=== PATIENT | male | born 1965 | race Caucasian/White ===

== ENCOUNTER 2021-02-19 17:04 | Emergency (ER) | payer MEDICARE, OTHER ==
[2021-02-19 17:19] VITALS: TEMP 98.4
[2021-02-19 18:40] LABS: Basophils # (A) 0.1 k/uL (0-0.2); Basophils % (A) 1 %; Eosinophils # (A) 0.3 k/uL (0-0.7); Eosinophils % (A) 3 %; HCT 44.2 % (39.0-53.0); HGB 14.6 gm/dL (13.0-17.5); Lymphocytes # (A) 0.8 k/uL (1.0-4.8); Lymphocytes % (A) 7 %; MCH 29.9 pg (25.0-35.0); MCHC 33.1 g/dL (31.0-37.0); MCV 90.4 fL (80.0-100.0); Mean Platelet Volume 8.4; Monocytes # (A) 0.8 k/uL (0-1.0); Monocytes % (A) 7 %; Neutrophils # (A) 9.4 k/uL (1.3-7.7); Neutrophils % (A) 81 %; Platelet Count 227 k/uL (150-450); RBC 4.89 m/uL (4.30-5.90); RDW 11.9 % (11.5-15.5); WBC 11.5 k/uL (3.8-10.6)
[2021-02-19 18:49] LABS: ALT 40 U/L (4-49); AST 40 U/L (17-59); African American GFR (CKD) >90 (>60 ml/min/1.73 sqM); Albumin 4.7 g/dL (3.5-5.0); Alkaline Phosphatase 101 U/L (38-126); Anion Gap 11 mmol/L; Blood Urea Nitrogen 13 mg/dL (9-20); Carbon Dioxide 25 mmol/L (22-30); Chloride 101 mmol/L (98-107); Glucose 106 mg/dL (74-99); Non-African American GFR(CKD) >90 (>60 ml/min/1.73 sqM); Potassium 4.4 mmol/L (3.5-5.1); Sodium 137 mmol/L (137-145); Total Bilirubin 0.7 mg/dL (0.2-1.3); Total Protein 7.8 g/dL (6.3-8.2)
[2021-02-19 18:54] LABS: INR 0.9 (<1.2)
[2021-02-19 19:15] VITALS: RESP 20
--- NOTE | 2021-02-19 19:44 | XR ---
EXAMINATION TYPE: XR chest 2V DATE OF EXAM: 02/19/2021 COMPARISON: NONE HISTORY: Chest pain TECHNIQUE: 2 views FINDINGS: Heart and mediastinum are normal. Lungs are clear of infiltrate. There is no heart failure. There are no hilar masses. There are chest leads. Bony thorax is intact. IMPRESSION: No active cardiopulmonary disease. Normal heart.
[2021-02-19] MEDS ORDERED: IPRATROPIUM-ALBUTEROL 3 ML NEB INHALATION STA (19:56)
--- NOTE | 2021-02-19 20:25 | CT ---
EXAMINATION TYPE: CT chest angio for PE DATE OF EXAM: 02/19/2021 COMPARISON: None HISTORY: Cough, congestion, elevated d-dimer. CT DLP: 360 mGycm Automated exposure control for dose reduction was used. CONTRAST: Performed with IV Contrast, patient injected with 100 mL of Isovue 370. There are 3-D post processed images. There is no mediastinal adenopathy. There are no hilar masses. Thoracic aorta is intact. There is no evidence of aneurysm or dissection. The ascending aorta measures 3.9 cm. Heart size is normal. There is no pericardial effusion. There is normal contrast opacification of the pulmonary arteries. There are no filling defects. There is some minor spurring in the thoracic spine. There is no compression fracture. Sternum is inta ct. Upper abdominal soft tissues are intact. The lungs are clear of infiltrate. There is some mild re ticular interstitial density in the upper and lower lung bell. IMPRESSION: No evidence of pulmonary embolism. There is some minimal interstitial pneumonia. Normal heart.
[2021-02-19 20:44] VITALS: PULSE 68
[2021-02-19] MEDS ORDERED: predniSONE 20 MG TAB PO STA (20:45)
[2021-02-19] MEDS ORDERED: DOXYCYCLINE 100 MG CAP PO STA (20:45)
--- NOTE | 2021-02-19 20:52 | ED ---
General Adult HPI - General Chief complaint: Chest Pain Stated complaint: Chest Pain/Cough Time Seen by Provider: 02/19/21 17:48 Source: patient Mode of arrival: ambulatory Limitations: no limitations - History of Present Illness Initial comments: 55-year-old previously healthy male presents to the emergency department chest congestion and cough. States that for the past 3 days he has had a productive cough, shortness of breath and chest pain. States his sputum has been clear. Denies any previous history of pulmonary or cardiac disease. He is a smoker. Denies any sick contacts with similar symptoms. No covid exposure. He went to an urgent care this morning. He completed an EKG and told the hospital. He went to [facility] and was told that it was a 5 hour wait. He left and decided to come here. Denies hemoptysis. Has not been taking any medications at home for symptoms. No other alleviating, precipitating or modifying factors - Related Data Previous Rx's Medication Instructions Recorded Albuterol Inhaler [Ventolin Hfa 2 puff INHALATION RT-QID #8 gm 02/19/21 Inhaler] Doxycycline Monohydrate [Monodox] 100 mg PO Q12HR #20 cap 02/19/21 predniSONE [Deltasone] 20 mg PO BID #10 tab 02/19/21 Allergies Allergy/AdvReac Type Severity Reaction Status Date / Time No Known Allergies Allergy Verified 02/19/21 18:16 Review of Systems ROS Statement: Those systems with pertinent positive or pertinent negative responses have been documented in the HPI. ROS Other: All systems not noted in ROS Statement are negative. Past Medical History Additional Past Medical History / Comment(s): closed head injury. History of Any Multi-Drug Resistant Organisms: None Reported Past Surgical History: Orthopedic Surgery Past Psychological History: No Psychological Hx Reported Smoking Status: Current every day smoker Past Alcohol Use History: None Reported Past Drug Use History: Marijuana General Exam Limitations: no limitations Course Vital Signs 02/19/21 02/19/21 02/19/21 17:14 19:14 20:40 Temperature 98.4 F Pulse Rate 65 65 68 Respiratory 18 20 Rate Blood Pressure 142/71 142/89 O2 Sat by Pulse 97 97 Oximetry 02/19/21 02/19/21 20:49 20:59 Temperature 98.4 F Pulse Rate 68 68 Respiratory 20 Rate Blood Pressure 141/84 O2 Sat by Pulse 96 Oximetry EKG Findings - EKG Comments: EKG Findings:: EKG demonstrates sinus rhythm with a ventricular rate of 71. CT interval 148. QRS 112. QTC of 430. No acute ST segment elevations or depressions Procedures - [place] Protocol (Time Out) Nurse: Jatin Galeano Medical Decision Making - Medical Decision Making Upon arrival the patient was placed into room 14. Thorough history and physical exam is performed. IV is established. Laboratory studies are conducted. D- dimer elevated at 2.78. Troponin negative. BNP 31. Covid negative. Chest x- ray is performed and menstruates no active cardiopulmonary disease. CT demonstrates no evidence of pulmonary ambles and. Minimal interstitial pneumonia. Patient is given a DuoNeb breathing treatment, 100 mg of doxycycline and 60 mg of prednisone. Patient will be discharged home with an albuterol inhaler, doxycycline and prednisone. Instructed to take the medications as directed and follow up with his primary care doctor in 2-4 days. Return to the emergency room for any new or worsening symptoms. Patient was discharged home in stable condition - Lab Data Result diagrams: 02/19/21 18:30 02/19/21 18:30 Lab Results 02/19/21 02/19/21 02/19/21 Range/Units 18:30 18:30 18:30 WBC 11.5 H (3.8-10.6) k/uL RBC 4.89 (4.30-5.90) m/uL Hgb 14.6 (13.0-17.5) gm/dL Hct 44.2 (39.0-53.0) % MCV 90.4 (80.0-100.0) fL MCH 29.9 (25.0-35.0) pg MCHC 33.1 (31.0-37.0) g/dL RDW 11.9 (11.5-15.5) % Plt Count 227 (150-450) k/uL MPV 8.4 Neutrophils % 81 % Lymphocytes % 7 % Monocytes % 7 % Eosinophils % 3 % Basophils % 1 % Neutrophils # 9.4 H (1.3-7.7) k/uL Lymphocytes # 0.8 L (1.0-4.8) k/uL Monocytes # 0.8 (0-1.0) k/uL Eosinophils # 0.3 (0-0.7) k/uL Basophils # 0.1 (0-0.2) k/uL PT 10.0 (9.0-12.0) sec INR 0.9 (<1.2) APTT 25.0 (22.0-30.0) sec D-Dimer 2.78 H (<0.60) mg/L FEU Sodium 137 (137-145) mmol/L Potassium 4.4 (3.5-5.1) mmol/L Chloride 101 (98-107) mmol/L Carbon Dioxide 25 (22-30) mmol/L Anion Gap 11 mmol/L BUN 13 (9-20) mg/dL Creatinine 0.88 (0.66-1.25) mg/dL Est GFR (CKD-EPI)AfAm >90 (>60 ml/min/1.73 sqM) Est GFR (CKD-EPI)NonAf >90 (>60 ml/min/1.73 sqM) Glucose 106 H (74-99) mg/dL Plasma Lactic Acid Dalton (0.7-2.0) mmol/L Calcium 10.0 (8.4-10.2) mg/dL Total Bilirubin 0.7 (0.2-1.3) mg/dL AST 40 (17-59) U/L ALT 40 (4-49) U/L Alkaline Phosphatase 101 (38-126) U/L Troponin I (0.000-0.034) ng/mL NT-Pro-B Natriuret Pep pg/mL Total Protein 7.8 (6.3-8.2) g/dL Albumin 4.7 (3.5-5.0) g/dL Coronavirus (PCR) (Not Detectd) 02/19/21 02/19/21 02/19/21 Range/Units 18:30 18:30 18:30 WBC (3.8-10.6) k/uL RBC (4.30-5.90) m/uL Hgb (13.0-17.5) gm/dL Hct (39.0-53.0) % MCV (80.0-100.0) fL MCH (25.0-35.0) pg MCHC (31.0-37.0) g/dL RDW (11.5-15.5) % Plt Count (150-450) k/uL MPV Neutrophils % % Lymphocytes % % Monocytes % % Eosinophils % % Basophils % % Neutrophils # (1.3-7.7) k/uL Lymphocytes # (1.0-4.8) k/uL Monocytes # (0-1.0) k/uL Eosinophils # (0-0.7) k/uL Basophils # (0-0.2) k/uL PT (9.0-12.0) sec INR (<1.2) APTT (22.0-30.0) sec D-Dimer (<0.60) mg/L FEU Sodium (137-145) mmol/L Potassium (3.5-5.1) mmol/L Chloride (98-107) mmol/L Carbon Dioxide (22-30) mmol/L Anion Gap mmol/L BUN (9-20) mg/dL Creatinine (0.66-1.25) mg/dL Est GFR (CKD-EPI)AfAm (>60 ml/min/1.73 sqM) Est GFR (CKD-EPI)NonAf (>60 ml/min/1.73 sqM) Glucose (74-99) mg/dL Plasma Lactic Acid Dalton 1.2 (0.7-2.0) mmol/L Calcium (8.4-10.2) mg/dL Total Bilirubin (0.2-1.3) mg/dL AST (17-59) U/L ALT (4-49) U/L Alkaline Phosphatase (38-126) U/L Troponin I <0.012 (0.000-0.034) ng/mL NT-Pro-B Natriuret Pep 31 pg/mL Total Protein (6.3-8.2) g/dL Albumin (3.5-5.0) g/dL Coronavirus (PCR) (Not Detectd) 02/19/21 Range/Units 18:30 WBC (3.8-10.6) k/uL RBC (4.30-5.90) m/uL Hgb (13.0-17.5) gm/dL Hct (39.0-53.0) % MCV (80.0-100.0) fL MCH (25.0-35.0) pg MCHC (31.0-37.0) g/dL RDW (11.5-15.5) % Plt Count (150-450) k/uL MPV Neutrophils % % Lymphocytes % % Monocytes % % Eosinophils % % Basophils % % Neutrophils # (1.3-7.7) k/uL Lymphocytes # (1.0-4.8) k/uL Monocytes # (0-1.0) k/uL Eosinophils # (0-0.7) k/uL Basophils # (0-0.2) k/uL PT (9.0-12.0) sec INR (<1.2) APTT (22.0-30.0) sec D-Dimer (<0.60) mg/L FEU Sodium (137-145) mmol/L Potassium (3.5-5.1) mmol/L Chloride (98-107) mmol/L Carbon Dioxide (22-30) mmol/L Anion Gap mmol/L BUN (9-20) mg/dL Creatinine (0.66-1.25) mg/dL Est GFR (CKD-EPI)AfAm (>60 ml/min/1.73 sqM) Est GFR (CKD-EPI)NonAf (>60 ml/min/1.73 sqM) Glucose (74-99) mg/dL Plasma Lactic Acid Dalton (0.7-2.0) mmol/L Calcium (8.4-10.2) mg/dL Total Bilirubin (0.2-1.3) mg/dL AST (17-59) U/L ALT (4-49) U/L Alkaline Phosphatase (38-126) U/L Troponin I (0.000-0.034) ng/mL NT-Pro-B Natriuret Pep pg/mL Total Protein (6.3-8.2) g/dL Albumin (3.5-5.0) g/dL Coronavirus (PCR) Not Detected (Not Detectd) Disposition Clinical Impression: Cough, CAP (community acquired pneumonia) Disposition: HOME SELF-CARE Condition: Stable Instructions (If sedation given, give patient instructions): Pneumonia (ED) Additional Instructions: Take the antibiotics and steroids as directed. Use the inhaler every 4 hours. Follow up with the primary care doctor in 2-4 days. Return to the emergency room for any new or worsening symptoms Prescriptions: predniSONE [Deltasone] 20 mg PO BID #10 tab Doxycycline Monohydrate [Monodox] 100 mg PO Q12HR #20 cap Albuterol Inhaler [Ventolin Hfa Inhaler] 2 puff INHALATION RT-QID #8 gm Is patient prescribed a controlled substance at d/c from ED?: No Referrals: None,Stated [Primary Care Provider] - 1-2 days Time of Disposition: 20:52
[2021-02-19 21:00] VITALS: BP 141/84
== END 2021-02-19 21:00 | disposition home or self-care (01) ==
LOC: EC 17:04
DX: J18.9 Pneumonia, unspecified organism (principal); F17.200 Nicotine dependence, unspecified, uncomplicated; F12.90 Cannabis use, unspecified, uncomplicated
CPT/HCPCS: 36415; 94640; 85379; 83880; 80053; 83605; 84484; 85025; 85610; 85730; 87635; 71046; 71275; 99285; J7512; Q9967; 93005

== ENCOUNTER 2021-04-11 11:22 | Inpatient (IN) | payer MEDICARE, MEDICAID ==
[2021-04-11] MEDS ORDERED: MAG HYDROX/AL HYDROX/SIMETH 30 ML CUP PO PRN (13:40)
[2021-04-11] MEDS ORDERED: MAGNESIUM HYDROXIDE 2,400 MG/10 ML CUP PO PRN (13:40)
[2021-04-11] MEDS ORDERED: ACETAMINOPHEN TAB 325 MG TAB PO PRN (13:40)
[2021-04-11] MEDS ORDERED: LORazepam 1 MG TAB PO PRN (13:40)
[2021-04-11] MEDS ORDERED: HALOPERIDOL ORAL SOLN 10 MG/5 ML CUP PO PRN (13:44)
[2021-04-11] MEDS ORDERED: HALOPERIDOL LACTATE 5 MG/ML 1 ML VIAL IM PRN (13:44)
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
[2021-04-12] MEDS: NICOTINE 21MG/24HR PATCH TRANSDERM SCH (08:41)
[2021-04-12 09:39] LABS: Basophils # (A) 0.1 k/uL (0-0.2); Basophils % (A) 1 %; Eosinophils # (A) 0.2 k/uL (0-0.7); Eosinophils % (A) 2 %; HCT 42.7 % (39.0-53.0); HGB 14.1 gm/dL (13.0-17.5); Lymphocytes % (A) 11 %; MCH 28.9 pg (25.0-35.0); MCHC 32.9 g/dL (31.0-37.0); Mean Platelet Volume 7.8; Monocytes # (A) 0.5 k/uL (0-1.0); Monocytes % (A) 5 %; Neutrophils # (A) 7.7 k/uL (1.3-7.7); Neutrophils % (A) 80 %; Platelet Count 331 k/uL (150-450); RBC 4.86 m/uL (4.30-5.90); RDW 12.4 % (11.5-15.5); WBC 9.7 k/uL (3.8-10.6)
[2021-04-12 09:54] LABS: ALT 47 U/L (4-49); AST 32 U/L (17-59); African American GFR (CKD) >90 (>60 ml/min/1.73 sqM); Albumin 4.5 g/dL (3.5-5.0); Alkaline Phosphatase 76 U/L (38-126); Anion Gap 15 mmol/L; Blood Urea Nitrogen 16 mg/dL (9-20); Calcium 10.3 mg/dL (8.4-10.2); Carbon Dioxide 21 mmol/L (22-30); Chloride 99 mmol/L (98-107); Glucose 280 mg/dL (74-99); Non-African American GFR(CKD) >90 (>60 ml/min/1.73 sqM); Potassium 4.7 mmol/L (3.5-5.1); Sodium 135 mmol/L (137-145); Total Bilirubin 0.5 mg/dL (0.2-1.3); Total Protein 7.5 g/dL (6.3-8.2)
[2021-04-12] MEDS ORDERED: traZODone HCL 50 MG TAB PO PRN (11:48)
[2021-04-12] MEDS ORDERED: busPIRone HCl 5 MG TAB PO PRN (11:48)
[2021-04-12] MEDS ORDERED: ALBUTEROL HFA INHALER INHALATION PRN (11:49)
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
[2021-04-13 00:50] VITALS: BP 114/76; PULSE 103; RESP 16; TEMP 97.4
[2021-04-13] MEDS: NICOTINE 21MG/24HR PATCH TRANSDERM SCH (09:00)
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
== END 2021-04-13 12:55 | disposition home or self-care (01) | DRG 881 ==
LOC: 3MHU 13:13
PROVIDERS: ADMIT Psychiatry & Neurology Psychiatry; ATTEND Psychiatry & Neurology Psychiatry
DX: F32.A Depression, unspecified (principal); R45.851 Suicidal ideations; F14.10 Cocaine abuse, uncomplicated; L40.0 Psoriasis vulgaris; F13.10 Sedative, hypnotic or anxiolytic abuse, uncomplicated; F41.9 Anxiety disorder, unspecified; F17.210 Nicotine dependence, cigarettes, uncomplicated; Z86.16 Personal history of COVID-19; G47.00 Insomnia, unspecified; Z79.899 Other long term (current) drug therapy; Z87.820 Personal history of traumatic brain injury
CPT/HCPCS: 80053; 80061; 83036; 84439; 84443; 85025